=== PATIENT | male | born 1985 | race Asian ===

== ENCOUNTER 2022-08-11 22:19 | Emergency (ER) | payer OTHER ==
[2022-08-11 22:30] VITALS: RESP 16; BMI 22.0
[2022-08-11 23:37] VITALS: BP 140/80; PULSE 88; TEMP 98.6
== END 2022-08-11 23:40 | disposition home or self-care (01) ==
LOC: FER 22:19
PROC: 0HQFXZZ Repair Right Hand Skin, External Approach (ICD-10-PCS; principal; 2022-08-11)
DX: S61.411A Laceration without foreign body of right hand, initial encounter (principal); W21.06XA Struck by volleyball, initial encounter
CPT/HCPCS: 99282-25